=== PATIENT | female | born 1940 | race Caucasian/White ===

== ENCOUNTER 2018-07-19 08:06 | Outpatient (CLI) | payer MEDICARE ==
--- NOTE | 2018-07-20 07:31 | CT ---
CT CHEST WITH CONTRAST: 07/19/2018 COMPARISON: Study done at [facility] on 04/21/2018. FINDINGS: In the interval, pleural effusions have increased slightly bilaterally. In addition, there are now m ore patchy infiltrative areas throughout the lungs bilaterally. They are worse in the lower lobes, p osteriorly, but there are also significant amounts of new infiltrate in each upper lobe, especially t he lung apices. Some of these areas have air bronchograms within them. The findings are more sugges tive of an infectious process, on top of chronic lung disease, than not. Regarding the nodular density seen on the prior CT, in the left upper lobe, I do not see a nodule tod ay in this exact location. There is one nodular density slightly higher than was seen before, but it appears to connect to an area of infiltrate, so I am not convinced it is a true nodule. In other pa rts of the lungs, particularly the right upper lobe, one sees a tree-in-bud pattern to the lung nicholas ngs, which can also be seen in various infectious. The mediastinum showed no mass. There was no remarkable amount of adenopathy. Arteriosclerotic thacker ges are seen in the aorta and coronary vessels. Scans into the upper abdomen showed no adrenal enlar gement of concern, and no specific abnormalities in the areas scanned. IMPRESSION: 1. Considerable interval worsening of infiltrative and reticular changes throughout the lungs, as we ll as some increase in pleural fluid bilaterally. I would favor an infectious etiology, particularly thinking of atypical mycobacterial strains. If these have not been checked for, that could be fruit ful. 2. While there are several nodular areas, I am hard-pressed to point to any enlarging nodule that is concerning at the moment. I feel that further workup for an atypical infection would be prudent and productive. CODE T POS: HOME
== END 2018-07-19 08:07 | disposition home or self-care (01) ==
LOC: BURCT 08:06
PROVIDERS: ATTEND Family Medicine
DX: R91.8 Other nonspecific abnormal finding of lung field (principal)
CPT/HCPCS: 71260